=== PATIENT | male | born 2005 | race Two or more races ===

== ENCOUNTER 2024-03-10 20:53 | Emergency (ER) | payer MEDICAID, SELFPAY ==
[2024-03-10 20:55] VITALS: BMI 29.7
[2024-03-10 21:21] VITALS: BP 144/95; PULSE 69; RESP 18; TEMP 36.8; O2SAT 97
--- NOTE | 2024-03-10 21:31 | XR_ITS ---
Examination: Abdomen sonogram, Limited Date and time of exam: March 10, 2024 1014 hrs. Indications: Epigastric pain right upper abdominal pain beginning 3 days ago Technique: Real-time victor scale transabdominal sonographic images of the upper abdomen obtained. Findings: Multiple gallstones Gallbladder wall 0.3 cm no edema Common bile duct 0.5 cm Pancreatic head 3.2 cm Liver 14.8 cm smooth contour Normal hepatopedal portal venous flow Patent IVC Impression: Cholelithiasis, negative for cholecystitis No common bile duct stones
--- NOTE | 2024-03-10 21:32 | PD.EDRME ---
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 Patient denies N/V and diarrhea, as well as alcohol/drug use. Chief Complaint: Abdominal Pain Vital signs: Vital Signs Temperature 98.3 F 03/10/24 21:21 Pulse Rate 69 03/10/24 21:21 Respiratory Rate 18 03/10/24 21:21 Blood Pressure 144/95 H 03/10/24 21:21 Pulse Oximetry (%) 97 03/10/24 21:21 Oxygen Delivery Method Room Air 03/10/24 21:21
[2024-03-10 22:10] LABS: Collection Type, Urine Clean Catch; Squamous Epithelial Cell,Urine 0 /hpf (0-5)
[2024-03-10 22:18] LABS: Basophils # (Auto) 0.1 Thou/mm3 (0.0-0.2); Basophils % (Auto) 1 % (0-2.5); Eosinophils # (Auto) 0.1 Thou/mm3 (0.0-0.5); Eosinophils % (Auto) 1 % (0-10); Hemoglobin 15.5 g/dL (13.5-16.0); Immature Granulocytes % (Auto) 0 % (0-0); Immature Granulocytes Auto 0.02 Thou/mm3 (0.00-0.00); Lymphocytes # (Auto) 1.9 Thou/mm3 (1.0-5.0); Lymphocytes % (Auto) 21 % (10-50); Mean Corpuscular HGB Conc 35.2 g/dl (31.0-37.0); Mean Corpuscular Hemoglobin 28.4 pg (25.0-35.0); Mean Corpuscular Volume 81 fL (80-100); Monocytes # (Auto) 0.6 Thou/mm3 (0.0-0.8); Monocytes % (Auto) 7 % (0-12); Neutrophils # (Auto) 6.2 Thou/mm3 (1.8-7.7); Neutrophils % (Auto) 70 % (37-80); Nucleated Red Blood Cell % 0 /100 WBC (0); Platelet Count 308 Thou/mm3 (140-440); RDW Standard Deviation 38.6 fL (35.1-43.9); Red Blood Count 5.45 Miln/mm3 (4.50-5.90); White Blood Count 8.9 Thou/mm3 (4.5-11.0)
[2024-03-10 22:28] LABS: Bilirubin,Urine 1+ (Negative); Blood,Urine Negative (Negative); Clarity,Urine Clear (Clear/Hazy); Color,Urine Drk-Yellow (Lt Yel-Yel); Glucose, Urine Negative (Negative); Ketones,Urine 1+ (Negative); Leukocyte Esterase,Urine Negative (Negative); Nitrite,Urine Negative (Negative); PH,Urine 5.5 (5.0-7.0); Protein,Urine Negative (Neg - Trace); RBC,Urine 1 /hpf (0-3); Specific Gravity,Urine 1.018 (1.001-1.035); Urobilinogen,Urine Negative mg/dL (0.0-1.0); WBC,Urine 2 /hpf (0-5)
[2024-03-10 22:43] LABS: Amphetamine/Methamp Scrn,U Negative (Negative); Barbiturate Screen,Urine Negative (Negative); Benzodiazepines Screen,Urine Negative (Negative); Benzoylecgonine Screen, Ur Negative (Negative); Fentanyl Screen,Urine Negative (Negative); Opiate Screen,Urine Negative (Negative); THC Screen,Urine Negative (Negative)
[2024-03-10 22:52] LABS: Alanine Aminotransferase 521 U/L (10-49); Albumin, Serum 5.3 gm/dL (3.5-5.0); Alcohol, Blood Medical < 3.0 mg/dL (0-10.0); Alkaline Phosphatase 130 U/L (46-116); Anion Gap 11 (7-16); Aspartate Amino Transferase 154 U/L (0-34); BUN/Creatinine Ratio 8 Ratio (12-20); Bilirubin,Total 3.8 mg/dL (0.3-1.2); Blood Urea Nitrogen 9 mg/dL (9-23); Calcium 9.6 mg/dL (8.3-10.6); Calcium (Corrected) 9.6 mg/dL (8.5-10.1); Carbon Dioxide 24.2 mMol/L (20.0-31.0); Cardiac Risk Estimate 3.3 RATIO (4.0-6.7); Chloride 102 mMol/L (98-107); Cholesterol 171 mg/dL (132-200); Creatinine (Component) 1.1 mg/dL (0.6-1.3); Estimated Creatinine Clearance 113.3 mL/min (>60); Globulin 2.7 gm/dL (2.3-3.5); Glucose 99 mg/dL (74-106); HDL Cholesterol 52 mg/dL (40-60); LDL Cholesterol,Calculated 108 mg/dL (0-130); Lipase 26 U/L (12-53); Osmolality,Calculated 272 (275-295); Potassium 3.4 mMol/L (3.4-5.1); Sodium 137 mMol/L (136-145); Triglycerides 53 mg/dL (30-150); eGFR > 60 See Note
[2024-03-11] VITALS (12 sets, daily range): BP systolic 107–153; BP diastolic 58–96; PULSE 51–71; RESP 17–19; TEMP 36.6–36.9; O2SAT 96–100
--- NOTE | 2024-03-11 | XR_ITS ---
MRI abdomen, without contrast. MRCP Date and time of exam: March 11, 2024 0650 hrs. Indications: Jaundice elevated liver function tests today, cholelithiasis on gallbladder sonogram March 10, 2024 Technique: Multiple axial and coronal images of the abdomen have been obtained with the Siemens 1.5T MRI scanner. Images obtained included T1 weighted transverse images, T2-weighted transverse images, T2-weighted transverse images fat-suppressed, T2 weighted haste fat suppressed transverse images, T1 weighted images, in and out of phase images, T2-weighted coronal images, breath hold, T2 weighted haze coronal images as well as T2 weighted coronal thick slab images, MRCP. Findings: Intrahepatic biliary tract dilatation Multiple tiny gallstones with distended gallbladder Multiple stones in the enlarged common bile duct, the common hepatic duct measuring 10 mm with 5 mm impacted stone in the distal common bile duct coronal image 14 Splenomegaly 13 cm No pancreatic mass or dilated pancreatic duct No hydronephrosis Ascites Impression: Cholelithiasis, multiple tiny gallstones Multiple stones in the common bile duct, the largest 5 mm obstructing the common bile duct at the ampulla, recommend ERCP follow-up
--- NOTE | 2024-03-11 02:51 | EDNOTE_ITS ---
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 Patient denies N/V and diarrhea, as well as alcohol/drug use. -------- Dr. Trujillo's Main ED Evaluation: 18yo male presents to the ED for a chief complaint of RUQ pain x 3 days. Patient states his pain is intermittent. He denies any aggravating or alleviating factors. He reports having a decreased appetite. He denies any N/V/D, fever, chills or any other associated symptoms. No PMHx or PSH. Denies any alcohol use. Admits to smoke cigarettes. No known allergies. Patient states he is currently pain free. Related Data Allergies Allergy/AdvReac Type Severity Reaction Status Date / Time No Known Allergies Allergy Verified 03/10/24 20:56 Review of Systems Review of Systems Systems Reviewed: All systems reviewed, normal except as documented Past Medical History Social History SMOKING STATUS: Current some day smoker ED Exam General Limitations: Present no limitations General appearance: Present alert and in no apparent distress Head Head exam: Present atraumatic Eye Eye exam: Present normal appearance, PERRL and EOMI ENT ENT exam: Present normal exam, normal oropharynx and mucous membranes moist Neck Neck exam: Present normal inspection, full ROM and trachea midline Chest Chest inspection: Present normal inspection and symmetric chest wall rise Respiratory Respiratory exam: Present normal lung sounds bilaterally Cardiovascular Cardiovascular exam: Present regular rate, normal rhythm and normal heart sounds Abdominal Exam Abdominal exam: Present soft and normal bowel sounds; Absent Hewitt's sign or mass Extremities Exam Extremities exam: Present normal inspection and full ROM Back Exam Back exam: Present normal inspection and full ROM Neurological Exam Neurological exam: Present alert, oriented X3 and CN II-XII intact Psychiatric Psychiatric exam: Present normal affect and normal mood Skin Skin exam: Present warm, dry, intact and normal color Course Quality Measures none Orders Category Date Time Status US gall bladder Stat Exams 03/10/24 21:31 Completed Alcohol, Blood Medical Stat Lab 03/10/24 21:59 Completed CBC Stat Lab 12/19/24 21:59 Completed CMP [Comprehensive Metabolic Panel] Stat Lab 03/10/24 21:59 Completed Drug Screen,Urine Stat Lab 03/10/24 21:55 Completed Lipase Stat Lab 03/10/24 21:59 Completed Lipid Panel Stat Lab 03/10/24 21:59 Completed UA [Urinalysis] Stat Lab 03/10/24 21:55 Completed Vital Signs Vital signs: Vital Signs Temperature 98.3 F 03/10/24 21:21 Pulse Rate 69 03/10/24 21:21 Respiratory Rate 18 03/10/24 21:21 Blood Pressure 144/95 H 03/10/24 21:21 Pulse Oximetry (%) 97 03/10/24 21:21 Oxygen Delivery Method Room Air 03/10/24 21:21 Pulse ox is 97% on room air, which is normal according to my interpretation. Procedures -ED Smoking Cessation Time Spent Discussing Smoking Cessation w/Patient (min): 5 Patient Acknowledges Need for Cessation: Yes Additional Comments: The patient was counseled as to the multiple risks to their health from continued use of tobacco products. It was explained that continuing to smoke may lead to multiple short and mcc negative health consequences, including but not limited to mouth/esophageal/lung cancer, COPD, and heart disease. The patient states she/he understands these risks and also understands the options and resources available to them to help them stop smoking. Nicotine replacement therapy, local hotlines, and local resources were discussed as viable options for helping them stop their tobacco use. The total time spent counseling the patient regarding tobacco cessation was 5 minutes. Abdominal Pain MDM Patient data External records reviewed:: [facility] previous records (Per chart review, patient has no relevant previous ED visits or admissions to this facility.) Clinical information provided by:: patient Social determinants that could affect healthcare access:: none Patient has the following chronic illnesses:: none How is presenting disease/condition affected by chronic disease/condition?: no chronic disease Evaluation data The following diagnostics were reviewed and interpreted by me:: lab results and radiology exam(s) Lab and/or radiology exams considered but not ordered:: none Interpretation Summary: CBC is normal, AST, ALT, and Alkaline Phosphatase are all elevated, Total Bilirubin is elevated at 3.8, Lipase is normal, UA shows 1+ ketones and 1+ bilirubin, UDS is negative, Blood alcohol is negative, according to my interpretation. I have personally reviewed the radiology data and agree with the radiologist's interpretation below: [facility] Report Signed Patient: JAZMIN HERMAN Record#: [id number] Birthdate: 2005 Age/Sex: 18 / M Location: [facility] Attending Dr: Ordering Physician: Justin Lim PA-C Date of Service: 03/10/24 Procedure(s): US gall bladder Accession Number(s): [id number] cc: Cal Ramirez MD; NO PRIMARY/FAMILY,PHYSICIAN; Justin Lim PA-C~ Examination: Abdomen sonogram, Limited Date and time of exam: March 10, 2024 1014 hrs. Indications: Epigastric pain right upper abdominal pain beginning 3 days ago Technique: Real-time victor scale transabdominal sonographic images of the upper abdomen obtained. Findings: Multiple gallstones Gallbladder wall 0.3 cm no edema Common bile duct 0.5 cm Pancreatic head 3.2 cm Liver 14.8 cm smooth contour Normal hepatopedal portal venous flow Patent IVC Impression: Cholelithiasis, negative for cholecystitis No common bile duct stones Dictated By: Cal Ramirez MD Signed By: <Electronically signed by Cal Ramirez MD in OV> 03/10/24 2330 Medications / Prescriptions Medications or Prescriptions considered but not ordered:: none Medication administrations:: see above, if any Consultations Consultation(s) initiated? (list below): No Diagnosis Differential diagnosis abdominal pain: pancreatitis and other (cholelithiasis, choledocolithiasis, cholecystitis) Most likely diagnosis given after review of the tests above:: see below Admission Indicated Admission indicated?: not indicated Admission Request Was there a request for admission?: No Disposition Plan Disposition Plan: other (specify) (Signed out to the next oncoming provider at 0600 pending MRCP.) Discharge Plan Plan Disposition Comment: Stable at discharge Prescriptions/Referrals Referrals: No Primary/Family,Physician [Primary Care Provider] - In 1 week Problem List Clinical Impression: Gallstones, Elevated liver function tests Patient/Caregiver Discharge Instructions Print Language: Tuvaluan
--- NOTE | 2024-03-11 06:51 | PC.NURSE ---
radiology staff came and took pt for MRI.
--- NOTE | 2024-03-11 08:05 | PC.NURSE ---
REPORT RECEIVED, PATIENT RETURNED FROM MRI WITH NO COMPLAINTS OF PAIN. MOTHER REMAINS AT BEDSIDE. PATIENT AWARE OF PLAN OF CARE.
--- NOTE | 2024-03-11 08:39 | EDNOTE_ITS ---
Emergency Room Addendum <Jada Barahona - Last Filed: 03/11/24 10:19> Addendum Narrative: 0600: Care assumed from Dr. Trujillo, the previous shift emergency physician. Past medical, surgical, social and family history reviewed. Vitals and home medications reviewed. I will assume the care of the patient at this time, pending MRCP. Please refer to the emergency department record for history and examination from initial visit.? Nursing notes reviewed by me. Vital signs reviewed by me. [place] [facility] medical records reviewed by me. 1018: I spoke with transfer nurse at [facility] in [place]. Discussed patients PMHx, HPI, ED course, exam findings, labs, and radiology results. Will present the case to their GI team. RADIOLOGY Ordering Physician: Aziza Trujillo MD Date of Service: 03/11/24 Procedure(s): MR MRCP Accession Number(s): [id number] cc: Cal Ramirez MD; NO PRIMARY/FAMILY,PHYSICIAN; Aziza Trujillo MD~ MRI abdomen, without contrast. MRCP Date and time of exam: March 11, 2024 0650 hrs. Indications: Jaundice elevated liver function tests today, cholelithiasis on gallbladder sonogram March 10, 2024 Technique: Multiple axial and coronal images of the abdomen have been obtained with the Siemens 1.5T MRI scanner. Images obtained included T1 weighted transverse images, T2-weighted transverse images, T2-weighted transverse images fat-suppressed, T2 weighted haste fat suppressed transverse images, T1 weighted images, in and out of phase images, T2-weighted coronal images, breath hold, T2 weighted haze coronal images as well as T2 weighted coronal thick slab images, MRCP. Findings: Intrahepatic biliary tract dilatation Multiple tiny gallstones with distended gallbladder Multiple stones in the enlarged common bile duct, the common hepatic duct measuring 10 mm with 5 mm impacted stone in the distal common bile duct coronal image 14 Splenomegaly 13 cm No pancreatic mass or dilated pancreatic duct No hydronephrosis Ascites Impression: Cholelithiasis, multiple tiny gallstones Multiple stones in the common bile duct, the largest 5 mm obstructing the common bile duct at the ampulla, recommend ERCP follow-up Dictated By: Cal Ramirez MD Signed By: <Electronically signed by Cal Ramirez MD in OV> 03/11/24 0717 <Jose G Das MD - Last Filed: 03/11/24 11:36> Addendum Narrative: 0600: Care assumed from Dr. Trujillo, the previous shift emergency physician. Past medical, surgical, social and family history reviewed. Vitals and home medications reviewed. I will assume the care of the patient at this time, pending MRCP. Please refer to the emergency department record for history and examination from initial visit.? Nursing notes reviewed by me. Vital signs reviewed by me. [place] [facility] medical records reviewed by me. 1018: I spoke with transfer nurse at [facility] in [place]. Discussed patients PMHx, HPI, ED course, exam findings, labs, and radiology results. Will present the case to their GI team. RADIOLOGY Ordering Physician: Aziza Trujillo MD Date of Service: 03/11/24 Procedure(s): MR MRCP Accession Number(s): [id number] cc: Cal Ramirez MD; NO PRIMARY/FAMILY,PHYSICIAN; Aziza Trujillo MD~ MRI abdomen, without contrast. MRCP Date and time of exam: March 11, 2024 0650 hrs. Indications: Jaundice elevated liver function tests today, cholelithiasis on gallbladder sonogram March 10, 2024 Technique: Multiple axial and coronal images of the abdomen have been obtained with the Siemens 1.5T MRI scanner. Images obtained included T1 weighted transverse images, T2-weighted transverse images, T2-weighted transverse images fat-suppressed, T2 weighted haste fat suppressed transverse images, T1 weighted images, in and out of phase images, T2-weighted coronal images, breath hold, T2 weighted haze coronal images as well as T2 weighted coronal thick slab images, MRCP. Findings: Intrahepatic biliary tract dilatation Multiple tiny gallstones with distended gallbladder Multiple stones in the enlarged common bile duct, the common hepatic duct measuring 10 mm with 5 mm impacted stone in the distal common bile duct coronal image 14 Splenomegaly 13 cm No pancreatic mass or dilated pancreatic duct No hydronephrosis Ascites Impression: Cholelithiasis, multiple tiny gallstones Multiple stones in the common bile duct, the largest 5 mm obstructing the common bile duct at the ampulla, recommend ERCP follow-up Dictated By: Cal Ramirez MD Signed By: <Electronically signed by Cal Ramirez MD in OV> 03/11/24 0717 11:35 AM, I spoke to Dr. Rush, hospitalist from [facility]. He accepted the patient in transfer there. Thank you very much the patient is stable for transfer Diagnosis: Abdominal pain Cholelithiasis Choledocholithiasis Condition: Stable for transfer. Patient to be transferred by [facility]
--- NOTE | 2024-03-11 09:05 | PC.NURSE ---
patient needs ERCP services, [facility], [facility] in [facility] were all called to request a transfer. Patient information faxed to all these hospitals for review information.
[2024-03-11] MEDS: SODIUM CHLORIDE 0.9% 1000 ML 1,000 ML 125 ML IV (09:10)
--- NOTE | 2024-03-11 11:00 | PC.NURSE ---
SPOKE WITH [facility] TRANSFER NURSE. STATES THEY WILL CONTACT FACILITIES TO INQUIRE IF ERCP IS AVAILABLE.
[2024-03-11] MEDS: MORPHINE SULF INJ 10 MG/ML VIAL 4 MG IVP (12:00)
--- NOTE | 2024-03-11 12:48 | PC.NURSE ---
ACCEPTED AT [facility] IN [place] DR. HIDALGO WAITING FOR A BED ROOM 5207 CALL REPORT TAURUS KASPER [phone]
== END 2024-03-11 15:00 | disposition short-term general hospital (02) ==
PROVIDERS: Physician Assistant; Emergency Provider Emergency Medicine
DX: K80.70 Calculus of gallbladder and bile duct without cholecystitis without obstruction (principal); R79.89 Other specified abnormal findings of blood chemistry
CPT/HCPCS: 36415; 76705; 80053; 80061; 80307; 80320; 81001; 83690; 85025; 96360; 96361; 99285; J2270; J7030; S8037; 74181; G0480